=== PATIENT | female | born 1960 | race Caucasian/White ===

== ENCOUNTER → 2017-09-28 12:06 | Outpatient (CLI) | payer MEDICAID, SELFPAY ==
[2017-09-28 12:58] LABS: Erythrocyte Sedimentation Rate 5 mm/hr (0-30)
[2017-09-28 13:06] LABS: Hemoglobin A1c 5.9 % (4.2-6.3)
[2017-09-28 13:14] LABS: Vitamin B12 351 pg/mL (211-911)
[2017-09-28 13:18] LABS: Rheumatoid Factor < 10.0 IU/mL (<15); Thyroid Stim Hormone (TSH) 1.56 uIU/mL (0.358-3.74)
[2017-09-29 16:10] LABS: Albumin 4.1 g/dL (2.9-4.4); Albumin, Ur 20.1 % (.); Alpha-1-Globulin, Ur 5.6 % (.); Alpha-1-Globulins 0.2 g/dL (0.0-0.4); Alpha-2-Globulins 0.7 g/dL (0.4-1.0); Alpha-2-Globulins, Ur 13.1 % (.); Beta Globulin, Ur 20.1 % (.); Cytoplasmic Ab (C-ANCA) <1:20 titer (Neg:<1:20); Gamma Globulin 0.8 g/dL (0.4-1.8); Immunoglobulin A 197 mg/dL (87-352); Immunoglobulin G 687 mg/dL (700-1600); Immunoglobulin M 86 mg/dL (26-217); M-Spike, Ur % Not Observed % (Not Observed); PROEL- TOTAL PROTEIN 6.9 g/dL (6.0-8.5); SJOGREN'S Anti-SS-A test < 0.2 AI (0.0-0.9); SJOGREN'S Anti-SS-B test < 0.2 AI (0.0-0.9)
[2017-09-30 11:55] LABS: ANTINUCLEAR ANTIBODIES DIRECT Negative (Negative); Perinuclear Ab (P-ANCA) <1:20 titer (Neg:<1:20)
== END ==
PROVIDERS: Family Provider Family Medicine; PCP Family Medicine; Visit Provider Psychiatry & Neurology Neurology
DX: G62.9 Polyneuropathy, unspecified (principal); E11.9 Type 2 diabetes mellitus without complications
CPT/HCPCS: 36415; 82607; 82784; 83036; 84165; 84166; 84443; 85652; 86038; 86235; 86256; 86334; 86335; 86431

== ENCOUNTER → 2017-10-09 16:03 | Outpatient (CLI) | payer MEDICAID, SELFPAY ==
--- NOTE | 2017-10-09 16:14 | MRI_ITS ---
STUDY: MRI LUMBAR SPINE WITHOUT CONTRAST REASON FOR EXAM: Female, 56 years old. Low back pain and radicular symptoms to both legs. TECHNIQUE: Standardized fat and water weighted pulse sequences were obtained in the sagittal and axial planes. COMPARISON: None FINDINGS: T12-L1: Normal endplates. Normal disc height, signal and morphology. Normal bilateral facet joints. Normal central canal and bilateral lateral recesses. Normal bilateral intervertebral neural foramina. Normal lumbar lordosis. There is no substantial scoliosis. Normal conus medullaris that terminates at the L1 level. L1-2: There is a disc bulge and osteophyte complex. There is mild degenerative arthropathy of facet joints. No foramina are mildly narrowed without evidence for nerve impingement. There is no ascitic and central acquired canal stenosis. L2-3: There is mild annular disk bulge and osteophyte complex. There is mild degenerative arthropathy of the facet joints. Bilateral neuroforamina are narrowed without MR evidence for nerve impingement. There is no significant central canal stenosis. L3-4: There is mild annular disk bulge and osteophyte complex. There appears be a broad central disc protrusion. There is mild central acquired canal stenosis. There is mild degenerative arthropathy of the facet joints. Bilateral neuroforamina are narrowed without MR evidence for nerve impingement. L4-5: There is mild annular disk bulge and osteophyte complex. There is mild degenerative arthropathy of the facet joints. Bilateral neuroforamina are narrowed without MR evidence for nerve impingement. There is no significant central canal stenosis. L5-S1: There is a moderate annular disc bulge and osteophyte complex. There is moderately severe degenerative arthropathy of facet joints. Neural foramina are narrowed, more severely on the right, with possible impingement of the right L5 nerve root at the neural foramen. Normal visualized sacral ala. Normal visualized paraspinous soft tissue structures. MRI/Spine Lumbar (Routine) IMPRESSION: Moderately severe multilevel degenerative disc disease and degenerative arthropathy of the lumbar spine with acquired canal stenosis, neural foraminal narrowing and potential nerve impingement, as described. Electronically Signed: Mago Guadalupe MD at 15:58 EST , Service support ,
--- NOTE | 2017-10-09 16:14 | MRI_ITS ---
MR Brain W/O Contrast INDICATION: QUESADA'S INCREASING SEVERITY,FREQ hx of ovarian cancer COMPARISON: None TECHNIQUE: Multiplanar multisequence MRI examination of the brain without contrast. FINDINGS: There is no evidence of restricted diffusion to suggest acute ischemia/infarction. Ventricular system is normal in size and symmetric. Cortical sulci, sylvian fissures, and basal cisterns are well seen. Hunt-white matter differentiation is normal. Midline structures and craniocervical junction are normal. The cerebellopontine angles are normal and symmetric. There are punctate periventricular and subcortical FLAIR signal hyperintensities noted in the bilateral frontal lobes, nonspecific, most compatible with minimal chronic ischemic microvascular white matter changes. The supra and infratentorial brain parenchyma demonstrate otherwise normal signal. There is no evidence of parenchymal microhemorrhage, mass effect or midline shift, or abnormal extra-axial collection. Flow-voids of the [place] vascularity are well seen. The paranasal sinuses and mastooid air cells are clear. MRI/Brain without Contrast IMPRESSION: Minimal bilateral frontal chronic ischemic microvascular white matter changes. No acute findings. If there is is high clinical concern for metastatic disease, additional postcontrast sequences may be helpful for complete evaluation at 2138 Reported and signed by: Alix Lomeli MD Electronically Signed: Alix Lomeli MD at 20:36 EST Tel , Service support ,
--- NOTE | 2017-10-09 16:14 | MRI_ITS ---
STUDY: MRI CERVICAL SPINE WITHOUT CONTRAST REASON FOR EXAM: Female, 56 years old. Neck pain with bilateral arm numbness and tingling. TECHNIQUE: Standardized fat and water weighted pulse sequences were obtained in the sagittal and axial planes. Several images are limited by patient motion. COMPARISON: None FINDINGS: Normal foramen magnum and brainstem-cervical cord junction. Normal craniovertebral junction. Normal anterior atlantoaxial articulation. Normal odontoid process. There is straightening of the normal cervical lordosis. Normal vertebral bodies and posterior osseous elements. C2-3: There is moderate right-sided neural foraminal narrowing with potential nerve impingement. There is severe right-sided facet joint arthropathy that is the primary contributer to neural foraminal narrowing. The disc has a grossly normal appearance. The left neural foramen is patent. There is no sniffing and central acquired canal stenosis. C3-4: There is severe right-sided neural foraminal narrowing with probable nerve impingement left neural foramen is patent. There is no significant central acquired canal stenosis. C4-5: There is narrowing of the disc. There is a disc bulge and osteophyte complex. There is severe left-sided neural foraminal narrowing with potential nerve impingement. The right neural foramen is mildly narrowed. There is uncovertebral and facet joint arthropathy. C5-6: There is narrowing of the disc. There is a disc bulge and osteophyte complex. There is severe left-sided neural foraminal narrowing with potential nerve impingement. The right neural foramen also appears to be severely narrowed. There is no significant central acquired canal stenosis. There is moderate uncovertebral joint hypertrophy. C6-7: There is narrowing of the disc. There is severe bilateral neural foraminal narrowing with probable nerve impingement. There is moderate uncovertebral joint hypertrophy. There is no significant central acquired canal stenosis. C7-T1: Normal endplates. Normal disc height, signal and morphology. Normal central canal and intervertebral neural foramina. Normal cervical cord. There is no demonstrated cervical cord syrinx cavity. Normal visualized soft tissue structures. MRI/Spine Cervical (Routine) IMPRESSION: Moderately severe multilevel degenerative disc disease and degenerative arthropathy of the cervical spine with neural foraminal narrowing and potential nerve impingement, as described. Electronically Signed: Mago Guadalupe MD at 15:35 EST , Service support ,
== END ==
PROVIDERS: Family Provider Family Medicine; PCP Family Medicine; Visit Provider Psychiatry & Neurology Neurology
DX: R51 Headache (principal); M50.00 Cervical disc disorder with myelopathy, unspecified cervical region; M54.16 Radiculopathy, lumbar region
CPT/HCPCS: 70551; 72141; 72148

== ENCOUNTER → 2017-12-29 08:00 | Outpatient (CLI) | payer MEDICAID, SELFPAY ==
--- NOTE | 2017-12-29 10:23 | NEURO ---
NCS and/or EMG Patient Report Ordering Doctor: Fan Kolb DATE OF SERVICE: 12/29/17 This is a bilateral lower extremity nerve conduction study and a left lower extremity EMG performed on this 57-year-old female with a history of numbness and tingling in her left knee and thigh as well as back pain. Bilateral lower extremity sensory and motor nerve conduction studies are performed demonstrating normal sural sensory responses bilaterally. The common peroneal distal latencies amplitudes and conduction velocities are normal and the tibial distal latencies amplitudes and conduction velocities are preserved bilaterally. The tibial and common peroneal F-wave latencies are normal as well as the tibial H reflexes bilaterally. Left lower extremity needle electromyography is performed. Muscles evaluated included the extensor digitorum brevis, abductor hallucis, medial gastrocnemius, anterior tibialis, vastus lateralis and vastus medialis muscles. All muscles demonstrated normal insertional activity with absence of pathologic spontaneous activity. Motor unit potential recruitment pattern and amplitude was normal in all muscles tested. Impression: Normal electrophysiologic study of the lower extremities.
--- NOTE | 2017-12-29 10:26 | NEURO_ITS ---
NCS and/or EMG Patient Report Ordering Doctor: Fan Kolb DATE OF SERVICE: 12/29/17 This is a bilateral lower extremity nerve conduction study and a left lower extremity EMG performed on this 57-year-old female with a history of numbness and tingling in her left knee and thigh as well as back pain. Bilateral lower extremity sensory and motor nerve conduction studies are performed demonstrating normal sural sensory responses bilaterally. The common peroneal distal latencies amplitudes and conduction velocities are normal and the tibial distal latencies amplitudes and conduction velocities are preserved bilaterally. The tibial and common peroneal F-wave latencies are normal as well as the tibial H reflexes bilaterally. Left lower extremity needle electromyography is performed. Muscles evaluated included the extensor digitorum brevis, abductor hallucis, medial gastrocnemius , anterior tibialis, vastus lateralis and vastus medialis muscles. All muscles demonstrated normal insertional activity with absence of pathologic spontaneous activity. Motor unit potential recruitment pattern and amplitude was normal in all muscles tested. Impression: Normal electrophysiologic study of the lower extremities.
== END ==
PROVIDERS: Family Provider Family Medicine; PCP Family Medicine; Visit Provider Psychiatry & Neurology Neurology
DX: G62.9 Polyneuropathy, unspecified (principal); R20.0 Anesthesia of skin; R20.2 Paresthesia of skin
CPT/HCPCS: 95886; 95910

== ENCOUNTER 2018-02-19 13:25 | Emergency (ER) | payer MEDICAID, SELFPAY ==
[2018-02-19 13:25] VITALS: BP 119/74; PULSE 88; RESP 18; TEMP 36.4; O2SAT 95; BMI 34.3
--- NOTE | 2018-02-19 13:44 | US_ITS ---
STUDY: ABDOMINAL ULTRASOUND - RIGHT UPPER QUADRANT REASON FOR VISIT: Female, 57 years old. Abdominal pain. TECHNIQUE: Ultrasound evaluation of the right upper quadrant was performed with real-time and static iverson-scale imaging. TECHNICAL QUALITY: Adequate. COMPARISON: None. FINDINGS: Liver: The liver measures 18.4 cm. There is increased echogenicity consistent with fatty infiltration. The bile ducts are within normal limits. There is hepatic color flow. The direction of portal flow is hepatopetal. Area of hypodensity near the portal hilum measuring 3.3 x 2.5 x 2.7 cm. This is thought to represent focal fatty sparing. A mass cannot be completely ruled out. Gallbladder: Normal distended gallbladder. The gallbladder wall measures mm. There is a negative sonographic Sebastian's sign. There is no pericholecystic fluid. There is biliary sludge dependent within the gallbladder. Common Bile Duct (C.B.D.): The common bile duct measures 5 mm. Pancreas: Normal size of the head, body and tail of the pancreas. There is normal echogenicity of the pancreas. There is no demonstrated pancreatic mass or cyst. Right Kidney: Normal size of the right kidney. The right kidney measures 10.2 cm. Normal renal cortex. The right cortex measures 1.2 cm. There is no demonstrated renal mass or cyst. There is no right hydronephrosis. US/Gallbladder IMPRESSION: 1. Prominent, fatty infiltrated liver. There is a focal hypodensity near the nalini thought to be focal fatty sparing. 2. Gallbladder sludge without acute cholecystitis. Electronically Signed: Jared Doty DO at 15:03 EDT Tel [phone], Service support ,
[2018-02-19] MEDS: 0.9% Normal Saline 1,000 ML 125 ML IV (14:25)
[2018-02-19] MEDS: HYDROmorphone 1 MG/ML Syringe IV (14:25)
[2018-02-19] MEDS: Ondansetron 4 MG/2 ML Vial IV (14:25)
[2018-02-19 14:27] LABS: Absolute Lymphocyte Count 2.22 X10^3/ul (0.83-4.51); Absolute Neutrophil Count 6.3 X10^3/uL (2.0-7.7); Basophil# 0.02 X10^3/uL; Basophil% 0.2 % (0-1); Hematocrit 39.3 % (37-47); Hemoglobin 13.2 g/dl (12.0-15.0); Lymphocyte # 2.22 X10^3/ul (4.0); Lymphocyte % 23.2 % (19-41); Mean Corp Hgb Conc 33.6 g/gl (32-36); Mean Corpuscular Volume 98.3 fL (81-99); Mean Platelet Vol. 9.3 fl (6.2-12.0); Monocyte# 0.86 X10^3/uL; Neutrophil # 6.32 X10^3/uL (2.7-7.7); Neutrophil % 66.3 % (47-70); Platelet Count 330 K/mm3 (150-450); RBC Distribution Width CV 11.8 % (11.6-14.6); RBC Distribution Width SD 41.8 fl (35.1-43.9); White Blood Count 9.6 K/mm3 (4.4-11.0)
[2018-02-19 14:28] LABS: POSITIVE COUNT NO; POSITIVE DIFFERENTIAL NO; POSITIVE MORPHOLOGY NO
[2018-02-19 14:41] LABS: ALB/GLOB Ratio 1.1 RATIO (0.9-2.4); AST(SGOT) 22 U/L (15-37); Alanine Aminotransfer ALT/SGPT 46 U/L (13-56); Albumin, Serum 3.9 g/dL (3.2-5.0); Alkaline Phosphatase 64 U/L (45-117); Anion Gap 8 (5-15); BUN 12 mg/dL (7-18); BUN/Creat Ratio 19.4 RATIO (10-20); Chloride 107 mmol/L (98-107); Creatinine, Serum 0.62 mg/dL (0.55-1.02); EST Glomerular Filtration Rate 106 mL/min (>60); Est Glom Filt Rate - Afr Amer 128 mL/min (>60); Estimated Creatinine Clearance 82.81 ml/min; Globulin 3.4 g/dL (2.2-4.2); Glucose 90 mg/dL (74-106); Lipase 100 U/L (73-393); Potassium 3.9 mmol/L (3.5-5.1); Protein, Total 7.3 g/dL (6.4-8.2); Sodium Level 140 mmol/L (136-145)
[2018-02-19 16:08] LABS: D-Dimer Quantitative (DVT/PE) 0.67 FEU/ug/m (0.27-0.49)
--- NOTE | 2018-02-19 16:09 | ED.RN ---
TIMO FROM LAB CALLED WITH D-DIMER 0.67. DR. GROVE INFORMED OF SAME.
--- NOTE | 2018-02-19 16:19 | CT_ITS ---
STUDY: CTA CHEST REASON FOR EXAM: Female, 57 years old. Right lower chest pain. RADIATION DOSAGE (If Supplied By Facility): CTDIvol = ( 14.18 ) mGy, DLP = ( 595.32 ) mGycm TECHNIQUE: The examination was performed with the intravenous administration of 75mL ml of Isovue 370 contrast material. Post-processing of the angiographic images was performed, with multiplanar reformation and 3D reconstruction. Individualized dose optimization techniques were used for this CT. COMPARISON: None. FINDINGS: Normal enhancement of the main pulmonary artery and right and left pulmonary arteries. Normal enhancement of the bilateral peripheral pulmonary arteries. There is no demonstrated pulmonary embolism. Normal thoracic aorta and visualized great vessels. There is no demonstrated aortic dissection. Normal heart and pericardium. Normal mediastinum. Normal hilar regions. Normal visualized trachea and bronchi. The lungs are well expanded. Normal pulmonary parenchyma. Normal pleura. Normal chest wall structures. Normal osseous structures. No acute abnormality seen in the visualized upper abdomen. Densities seen in the gallbladder-see the report of the abdominal ultrasound. CT/CTA Chest W/WO Contrast IMPRESSION: Normal CTA chest examination, without a demonstrated pulmonary embolism or arterial dissection. No evidence for acute chest disease. Electronically Signed: Humberto Mcgowan MD at 17:00 EDT , Service support ,
--- NOTE | 2018-02-19 16:22 | ED.VISSUMM ---
- ER Visit Summary Date of Service: 02/19/18 Chief Complaint: [Abdominal pain] History of Present Illness: The patient is a 57 F [presents the emergency department complaint of abdominal pain that started 5 days ago initially. Patient initially had some diarrhea for a day or so but then resolved. Patient states the pain progressively worsened until she went to be evaluated at [facility] yesterday. Patient states she had blood work and a CAT scan with IV contrast that showed nothing acute and she was discharged home. Patient states that she continued to have pain and that this morning the pain was severe. Patient has had decreased appetite and she thinks pain seems to be worse after eating. Patient describes the pain is worse with breathing and with moving. She has some mild shortness of breath. Patient denies recent travel or surgery. Patient has a history of some chronic back pain issues and history of hypertension. Past surgical history includes an appendectomy.] Physical Examination: [HEENT-PERRLA, EOMI. Cranial nerves II through XII grossly intact. TMs clear. Mucous membranes moist. No adenopathy. Cardiovascular-regular rate and rhythm without murmur or ectopy Lungs-clear to auscultation, chest wall stable without crepitus or subcu emphysema Abdomen-normoactive bowel sounds, soft. Patient has tenderness over right upper quadrant with some guarding. Patient did have a positive Sebastian sign for me. There is no rebound, rigidity or peritoneal signs. Extremities-intact ?4, normal range of motion, normal pulses, atraumatic] Test Results: [CBC with differential obtained showed a white count of 9.6, hemoglobin 13, hematocrit 39, platelets 330. Chemistries were normal. LFTs were normal. Lipase was 100. Lactate was normal 1.0. Ultrasound of the gallbladder showed sludge and a hypodensity at the nalini hepatis of uncertain etiology but could not rule out mass. Given the patient had an elevated d-dimer CTA of the chest was ordered and results of which are pending.] Emergency Department Course and Treatment: [He was medicated with morphine and Zofran] Treatment Plan: [Care turned over to evening physician awaiting CTA chest and final disposition] Disposition: [Pending] Impression: [Abdominal pain] This note was generated with [employer] dictation software. It may contain incorrect words, spelling, and punctuation that were not noted in review of the chart prior to signing ED Disposition - Plan for ED Patient: Chief Complaint: Flank Pain Referrals: Hector Malloy MD [Primary Care Provider] -
--- NOTE | 2018-02-19 16:25 | ED.DCSUM_ITS ---
- ER Visit Summary Date of Service: 02/19/18 Chief Complaint: [Abdominal pain] History of Present Illness: The patient is a 57 F [presents the emergency department complaint of abdominal pain that started 5 days ago initially. Patient initially had some diarrhea for a day or so but then resolved. Patient states the pain progressively worsened until she went to be evaluated at [facility] yesterday. Patient states she had blood work and a CAT scan with IV contrast that showed nothing acute and she was discharged home. Patient states that she continued to have pain and that this morning the pain was severe. Patient has had decreased appetite and she thinks pain seems to be worse after eating. Patient describes the pain is worse with breathing and with moving. She has some mild shortness of breath. Patient denies recent travel or surgery. Patient has a history of some chronic back pain issues and history of hypertension. Past surgical history includes an appendectomy.] Physical Examination: [HEENT-PERRLA, EOMI. Cranial nerves II through XII grossly intact. TMs clear. Mucous membranes moist. No adenopathy. Cardiovascular-regular rate and rhythm without murmur or ectopy Lungs-clear to auscultation, chest wall stable without crepitus or subcu emphysema Abdomen-normoactive bowel sounds, soft. Patient has tenderness over right upper quadrant with some guarding. Patient did have a positive Sebastian sign for me. There is no rebound, rigidity or peritoneal signs. Extremities-intact ?4, normal range of motion, normal pulses, atraumatic] Test Results: [CBC with differential obtained showed a white count of 9.6, hemoglobin 13, hematocrit 39, platelets 330. Chemistries were normal. LFTs were normal. Lipase was 100. Lactate was normal 1.0. Ultrasound of the gallbladder showed sludge and a hypodensity at the nalini hepatis of uncertain etiology but could not rule out mass. Given the patient had an elevated d- dimer CTA of the chest was ordered and results of which are pending.] Emergency Department Course and Treatment: [He was medicated with morphine and Zofran] Treatment Plan: [Care turned over to evening physician awaiting CTA chest and final disposition] Disposition: [Pending] Impression: [Abdominal pain] This note was generated with [employer] dictation software. It may contain incorrect words, spelling, and punctuation that were not noted in review of the chart prior to signing ED Disposition - Plan for ED Patient: Chief Complaint: Flank Pain Referrals: Hector Malloy MD [Primary Care Provider] -
--- NOTE | 2018-02-19 18:13 | DCINST.ED_ITS ---
ED Disposition - Plan for ED Patient: Disposition: Home or Assisted Living Chief Complaint: Flank Pain Instructions: ED Flank Pain Uncertain Cause Prescriptions: Hydrocodone/Acetaminophen [[place] 7.5-325 Tablet] 1 ea PO Q4H PRN PRN #20 tab PRN Reason: Pain Referrals: Hector Malloy MD [Primary Care Provider] - As soon as possible Additional Instructions: [place] and Motrin for pain. Return to ER feeling worse. Call and follow-up with Dr. Malloy for further evaluation and possible outpatient nuclear medicine HIDA scan.
[2018-02-19 18:32] VITALS: BP 108/77; PULSE 73; RESP 18; O2SAT 95
== END 2018-02-19 18:33 | disposition home or self-care (01) ==
PROVIDERS: Emergency Medicine; Emergency Provider Emergency Medicine; Family Provider Family Medicine; PCP Family Medicine
DX: R10.11 Right upper quadrant pain (principal); R07.81 Pleurodynia; K82.8 Other specified diseases of gallbladder; R19.7 Diarrhea, unspecified; R06.00 Dyspnea, unspecified; R79.89 Other specified abnormal findings of blood chemistry; M54.9 Dorsalgia, unspecified; G89.29 Other chronic pain; I10 Essential (primary) hypertension; Z79.899 Other long term (current) drug therapy; Z87.891 Personal history of nicotine dependence
CPT/HCPCS: 71275; 76705; 80053; 83605; 83690; 85025; 85379; 96361; 96374; 96375; 99283; J7030; Q9967; A4216; J2405

== ENCOUNTER 2018-04-12 10:18 | Day surgery (SDC) | payer MEDICARE, MEDICAID, SELFPAY ==
[2018-04-12] VITALS (7 sets, daily range): BP systolic 127–153; BP diastolic 73–94; PULSE 55–74; RESP 16; TEMP 36.3–36.4; O2SAT 97–98; BMI 34.3
--- NOTE | 2018-04-12 12:20 | RAD_ITS ---
PROCEDURE: C6-C7 epidural block. DATE OF EXAMINATION: April 12, 2018 INDICATION: Female, 57 years old. Chronic neck pain. FLUOROSCOPY TIME (if supplied): (0:05) minutes/seconds. 2 views were obtained. Intraoperative fluoroscopic imaging was provided for C6-C7 epidural block. RAD/OR-Steroid Inj/Cer Thor/1st L IMPRESSION: Fluoroscopic imaging for C6-C7 epidural block. Electronically Signed: Mika Agudelo MD at 8:14 EDT Tel [phone], Service support ,
[2018-04-12] MEDS: Triamcinolone Acetonide 40 MG/ML Vial (12:28)
== END 2018-04-12 13:13 | disposition home or self-care (01) ==
LOC: SDC 10:19 → AC 10:20
PROVIDERS: Family Provider Family Medicine; PCP Family Medicine; Visit Provider Anesthesiology Pain Medicine
PROC: 3E0S3BZ Introduction of Anesthetic Agent into Epidural Space, Percutaneous Approach (ICD-10-PCS; CPT 62320; principal; 2018-04-12 11:55)
DX: M50.123 Cervical disc disorder at C6-C7 level with radiculopathy (principal); M54.2 Cervicalgia; I10 Essential (primary) hypertension; Z79.899 Other long term (current) drug therapy; G43.909 Migraine, unspecified, not intractable, without status migrainosus; G89.4 Chronic pain syndrome; F32.9 Major depressive disorder, single episode, unspecified; Z85.43 Personal history of malignant neoplasm of ovary; E78.00 Pure hypercholesterolemia, unspecified; K21.9 Gastro-esophageal reflux disease without esophagitis; Z87.891 Personal history of nicotine dependence
CPT/HCPCS: 62321; 64490; J7120; J3490

== ENCOUNTER 2018-05-04 08:13 | Emergency (ER) | payer MEDICARE, MEDICAID, SELFPAY ==
[2018-05-04 08:13] VITALS: BP 158/97; PULSE 84; RESP 20; TEMP 36.6; O2SAT 98; BMI 35.4
--- NOTE | 2018-05-04 08:26 | EKG12_ITS ---
Test Reason : CHEST OTHER Blood Pressure : / mmHG Vent. Rate : 076 BPM Atrial Rate : 076 BPM P-R Int : 154 ms QRS Dur : 084 ms QT Int : 390 ms P-R-T Axes : 060 031 034 degrees QTc Int : 438 ms Normal sinus rhythm Normal ECG Confirmed by HERIBERTO CARLSON, LESTER ([id number]), multimedia editor ZENA CONTI ([id number]) on 05/10/2018 3:31:11 PM Referred By: MAINE Confirmed By:LESTER LOUIS MD
[2018-05-04 08:34] VITALS: PULSE 69; RESP 19; O2SAT 95
[2018-05-04] MEDS: 0.9% Normal Saline 1,000 ML 125 ML IV (08:45)
[2018-05-04] MEDS: HYDROmorphone 1 MG/ML Syringe IV ×3 (08:45→12:08)
[2018-05-04] MEDS: Ondansetron 4 MG/2 ML Vial IV (08:45)
[2018-05-04 09:03] LABS: Absolute Lymphocyte Count 2.21 X10^3/ul (0.83-4.51); Absolute Neutrophil Count 2.6 X10^3/uL (2.0-7.7); Basophil# 0.03 X10^3/uL; Basophil% 0.5 % (0-1); Eosinophil# 0.16 X10^3/uL; Eosinophils% 2.9 % (0-5); Hematocrit 38.9 % (37-47); Hemoglobin 12.6 g/dl (12.0-15.0); Lymphocyte # 2.21 X10^3/ul (4.0); Lymphocyte % 40.2 % (19-41); Mean Corp Hgb Conc 32.4 g/gl (32-36); Mean Corpuscular Hgb 32.2 pg (27.0-32.0); Mean Corpuscular Volume 99.5 fL (81-99); Mean Platelet Vol. 8.7 fl (6.2-12.0); Monocyte# 0.45 X10^3/uL; Monocyte% 8.2 % (0-10); Neutrophil # 2.64 X10^3/uL (2.7-7.7); POSITIVE COUNT NO; POSITIVE DIFFERENTIAL NO; POSITIVE MORPHOLOGY NO; Platelet Count 272 K/mm3 (150-450); RBC Distribution Width CV 12.9 % (11.6-14.6); RBC Distribution Width SD 47.2 fl (35.1-43.9); Red Blood Count 3.91 M/mm3 (4.2-5.4); White Blood Count 5.5 K/mm3 (4.4-11.0)
[2018-05-04 09:05] LABS: Mucous, Urine 0 SEEN /hpf (<or=2+); Red Blood Cells-Urine 0 SEEN /hpf (0-5); White Blood Cells 0 SEEN /hpf (0-5)
[2018-05-04 09:06] LABS: Color, Urine Yellow (Yellow); Glucose, Dipstick Normal (Normal); Ketone-Dipstick Negative (Negative); Leukocyte Esterase-Dipstick Negative /ul (Negative); Nitrite-Dipstick Negative (Negative); Occult Blood-Urine Negative /ul (Negative); Protein-Dipstick Negative (Negative); Urine Bilirubin Dipstick Negative (Negative); Urine Clarity Clear (Clear); Urine Urobilinogen Normal (Normal)
[2018-05-04 09:11] LABS: D-Dimer Quantitative (DVT/PE) 0.44 FEU/ug/m (0.27-0.49)
[2018-05-04 09:12] LABS: Bacteria RARE /hpf (None Seen); Squamous Epithelial Cells - UA 0-5 SEEN /hpf (5-10)
[2018-05-04 09:16] LABS: ALB/GLOB Ratio 1.1 RATIO (0.9-2.4); AST(SGOT) 18 U/L (15-37); Alanine Aminotransfer ALT/SGPT 34 U/L (13-56); Albumin, Serum 3.6 g/dL (3.2-5.0); Alkaline Phosphatase 65 U/L (45-117); Anion Gap 9 (5-15); BUN 10 mg/dL (7-18); BUN/Creat Ratio 16.9 RATIO (10-20); Chloride 103 mmol/L (98-107); Creatinine, Serum 0.59 mg/dL (0.55-1.02); EST Glomerular Filtration Rate 112 mL/min (>60); Est Glom Filt Rate - Afr Amer 135 mL/min (>60); Estimated Creatinine Clearance 87.02 ml/min; Globulin 3.4 g/dL (2.2-4.2); Glucose 95 mg/dL (74-106); Lipase 72 U/L (73-393); Sodium Level 140 mmol/L (136-145)
--- NOTE | 2018-05-04 09:29 | US_ITS ---
STUDY: ABDOMINAL ULTRASOUND - RIGHT UPPER QUADRANT REASON FOR VISIT: Female, 57 years old. Right upper quadrant pain x3 days TECHNIQUE: Ultrasound evaluation of the right upper quadrant was performed with real-time and static iverson-scale imaging. TECHNICAL QUALITY: Limited. Examination limited by bowel gas. COMPARISON: None. FINDINGS: Liver: The liver measures 18.4 cm. There is increased echogenicity consistent with fatty infiltration. The bile ducts are within normal limits. There is hepatic color flow. The direction of portal flow is hepatopetal. There is no demonstrated mass lesion. Gallbladder: Normal distended gallbladder. The gallbladder wall measures 3.0 mm. There is a negative sonographic Sebastian's sign. There is no pericholecystic fluid. There are gallbladder polyps. Single polyp measures 3 x 2 x 4 mm. Common Bile Duct (C.B.D.): The common bile duct measures 4.8 mm. Pancreas: There is nonvisualization of the pancreas. Right Kidney: Normal size of the right kidney. The right kidney measures 10.3 cm. Normal renal cortex. The right cortex measures 1.5 cm. There is no demonstrated renal mass or cyst. There is no right hydronephrosis. US/Gallbladder IMPRESSION: 1. Nonvisualized pancreas 2. Hepatomegaly with the pancreatic pseudocystic 3. Gallbladder polyp measuring 3 x 2 x 4 mm. Otherwise, unremarkable, bladder. Electronically Signed: Mac Hartman DO at 11:03 EDT Tel , Service support ,
[2018-05-04 10:26] VITALS: BP 149/73; PULSE 62; RESP 13; O2SAT 98
--- NOTE | 2018-05-04 10:36 | ED.VISSUMM ---
- ER Visit Summary Date of Service: 05/04/18 Chief Complaint: [Pain in right lower chest and upper abdomen.] History of Present Illness: The patient is a 57 F [presents to the emergency department complaint of pain that started about 3 days ago. Patient describes the pain as sharp and stabbing. Patient rates the pain a 9 out of 10. Patient states pain is worse with deep breathing. She denies shortness of breath. Patient has had a mild cough. She denies any fever. Patient had nausea and decreased appetite and states the pain is worse after eating. Patient states she had similar symptoms in the past that were not as severe and resolved on their own after about 2 weeks. Patient states that she was seen at [place] emergency department 2 days ago for a syncopal episode.] Physical Examination: [HEENT-PERRLA, EOMI. Cranial nerves II through XII grossly intact. TMs clear. Mucous membranes moist. No adenopathy. Cardiovascular-regular rate and rhythm without murmur or ectopy Lungs-clear to auscultation, chest wall stable without crepitus or subcu emphysema. Patient does have some tenderness to palpation over the right anterior chest wall inferiorly. Abdomen-normoactive bowel sounds, soft. Patient has tenderness to palpation of the right upper quadrant with guarding. She has a positive Sebastian sign. There is no rebound, rigidity, or perineal signs. Extremities-intact ?4, normal range of motion, normal pulses, atraumatic] Test Results: [EKG obtained on arrival shows sinus rhythm with a ventricular rate of 76 bpm with no acute ST segment changes. CBC with differential was normal. Chemistries were normal. LFTs were normal. Troponin was less than 0.05 lipase was normal.] Bladder ultrasound showed gallbladder polyp however no evidence of thickened gallbladder wall or pericholecystic fluid. Common bile duct was normal. CT scan of the abdomen pelvis with IV and p.o. contrast was read as normal. Emergency Department Course and Treatment: She was medicated with Dilaudid and Zofran followed by Dilaudid and Phenergan for continued pain. At this point etiology of patient's pain is unclear. [] Treatment Plan: [I discussed with patient option as far as admission for further workup and evaluation and pain management versus outpatient follow-up. Patient states that her father 2 days ago and her stepmom's elderly and she cannot be admitted at this time therefore would prefer to go home. Patient will be given a prescription for Walker for pain. As well as Phenergan for nausea. Patient will be given referral to general surgeon on-call. Patient advised to return if worsening pain, fever, vomiting, or condition should worsen anyway.] Patient understands that I do not have a clear etiology for her pain and may require further testing such as possibly HIDA scan to evaluate further. Disposition: [Discharged home in stable condition.] Impression: [Abdominal pain-etiology uncertain Chest wall pain.] This note was generated with [employer] dictation software. It may contain incorrect words, spelling, and punctuation that were not noted in review of the chart prior to signing ED Disposition - Plan for ED Patient: Chief Complaint: Chest Other Referrals: Hector Malloy MD [Primary Care Provider] -
--- NOTE | 2018-05-04 11:26 | CT_ITS ---
STUDY: CT ABDOMEN AND PELVIS WITH CONTRAST REASON FOR EXAM: Female, 57 years old. Abdominal pain RADIATION DOSAGE (If Supplied By Facility): CTDIvol = ( 18.56 ) mGy, DLP = ( 1218.05 ) mGycm TECHNIQUE: Transaxial images were obtained from the dome of the diaphragm to the symphysis pubis without oral contrast. 100 ml of Isovue 300 contrast was administered. Sagittal and coronal images were reconstructed. Individualized dose optimization techniques were used for this CT. COMPARISON: None. FINDINGS: The visualized lung bases are unremarkable. The visualized portions of the heart are within normal limits. There is decreased attenuation of the liver consistent with steatosis. Normal gallbladder and extrahepatic biliary system. Normal spleen. Normal pancreas. Normal bilateral adrenal glands. Normal right kidney. Normal left kidney. Normal visualized stomach. Normal small intestine. There are multiple colonic diverticula consistent with diverticulosis. There is non-visualization of the appendix. There is diffuse atherosclerotic calcification of the abdominal aorta, without a demonstrated aneurysm. Normal inferior vena cava. Normal retroperitoneum. Normal urinary bladder. There is absence of the uterus consistent with a prior hysterectomy. Normal abdominal wall. There are diffuse degenerative changes of the visualized lumbar spine. CT/Abdomen/Pelvis WITH Contrast IMPRESSION: No acute findings Electronically Signed: Mac Hartman DO at 14:00 EDT Tel , Service support ,
[2018-05-04] MEDS: proMETHazine 25 MG/ML Syringe 12.5 MG IV (12:08)
[2018-05-04 12:13] VITALS: BP 150/76; PULSE 70; RESP 14; O2SAT 94
[2018-05-04 13:58] VITALS: BP 131/90; PULSE 74; RESP 16; O2SAT 97
--- NOTE | 2018-05-04 14:19 | DCINST.ED_ITS ---
ED Disposition - Plan for ED Patient: Chief Complaint: Chest Other Instructions: ED Abdominal Pain Unkn Cause, ED Strain Chest Wall Prescriptions: proMETHazine tablet [Phenergan] 25 mg PO Q6H PRN PRN #10 tab PRN Reason: Nausea Hydrocodone/Acetaminophen [Achille 5-325 Tablet] 1 - 2 ea PO 4X/DAY PRN PRN 5 Days #20 tab PRN Reason: Pain Referrals: Hector Malloy MD [Primary Care Provider] - As soon as possible Mylene Hilton MD [STAFF PHYSICIAN] - 3-5 Days
== END 2018-05-04 14:35 | disposition home or self-care (01) ==
PROVIDERS: Emergency Provider Emergency Medicine; Family Provider Family Medicine; PCP Family Medicine
DX: R10.11 Right upper quadrant pain (principal); R07.89 Other chest pain; R05 Cough; R11.0 Nausea; K82.4 Cholesterolosis of gallbladder; I10 Essential (primary) hypertension; Z79.899 Other long term (current) drug therapy
CPT/HCPCS: 74177; 76705; 80053; 81001; 83690; 84484; 85025; 85379; 93005; 96361; 96374; 96375; 96376; 99283; J7030; Q9967; A4216; J2405

== ENCOUNTER → 2018-05-05 10:59 | Outpatient (CLI) | payer MEDICARE, MEDICAID, SELFPAY ==
[2018-05-05 11:21] LABS: Absolute Lymphocyte Count 1.97 X10^3/ul (0.83-4.51); Absolute Neutrophil Count 3.6 X10^3/uL (2.0-7.7); Basophil# 0.02 X10^3/uL; Basophil% 0.3 % (0-1); Eosinophil# 0.15 X10^3/uL; Eosinophils% 2.4 % (0-5); Hematocrit 41.8 % (37-47); Hemoglobin 13.6 g/dl (12.0-15.0); Lymphocyte # 1.97 X10^3/ul (4.0); Lymphocyte % 31.4 % (19-41); Mean Corp Hgb Conc 32.5 g/gl (32-36); Mean Corpuscular Hgb 32.9 pg (27.0-32.0); Mean Corpuscular Volume 101.2 fL (81-99); Mean Platelet Vol. 8.7 fl (6.2-12.0); Monocyte# 0.54 X10^3/uL; Monocyte% 8.6 % (0-10); Neutrophil # 3.58 X10^3/uL (2.7-7.7); Neutrophil % 57.1 % (47-70); POSITIVE COUNT NO; POSITIVE DIFFERENTIAL NO; POSITIVE MORPHOLOGY NO; Platelet Count 276 K/mm3 (150-450); RBC Distribution Width CV 13.1 % (11.6-14.6); RBC Distribution Width SD 48.8 fl (35.1-43.9); Red Blood Count 4.13 M/mm3 (4.2-5.4); White Blood Count 6.3 K/mm3 (4.4-11.0)
--- NOTE | 2018-05-05 11:24 | US_ITS ---
STUDY: ABDOMINAL ULTRASOUND - RIGHT UPPER QUADRANT REASON FOR VISIT: Female, 57 years old. Severe right upper quadrant pain TECHNIQUE: Ultrasound evaluation of the right upper quadrant was performed with real-time and static iverson-scale imaging. TECHNICAL QUALITY: Limited. Examination limited by bowel gas. COMPARISON: 05/04/2018 FINDINGS: Liver: The liver measures 18.4 cm. There is increased echogenicity consistent with fatty infiltration. The bile ducts are within normal limits. There is hepatic color flow. The direction of portal flow is hepatopetal. There is no demonstrated mass lesion. Gallbladder: Normal distended gallbladder. The gallbladder wall measures 2.2 mm. There is a negative sonographic Sebastian's sign. There is no pericholecystic fluid. Small amount of gallbladder sludge. Small gallbladder polyp. Common Bile Duct (C.B.D.): The common bile duct measures 4.8 mm. Pancreas: There is nonvisualization of the pancreas. Right Kidney: Normal size of the right kidney. The right kidney measures 10.3 cm. Normal renal cortex. The right cortex measures 1.9 cm. There is no demonstrated renal mass or cyst. There is no right hydronephrosis. US/Gallbladder IMPRESSION: No change from exam yesterday. Again noted is mild gallbladder sludge with gallbladder polyp. No evidence of acute cholecystitis. Nonvisualized pancreas. Remainder is unchanged. Electronically Signed: Mac Hartman DO at 12:20 EDT Tel , Service support ,
[2018-05-05 11:49] LABS: AST(SGOT) 22 U/L (15-37); Alanine Aminotransfer ALT/SGPT 39 U/L (13-56); Alkaline Phosphatase 73 U/L (45-117); Anion Gap 8 (5-15); BUN 9 mg/dL (7-18); BUN/Creat Ratio 13.8 RATIO (10-20); Calcium,Total 9.5 mg/dL (8.5-10.1); Chloride 102 mmol/L (98-107); Creatinine, Serum 0.65 mg/dL (0.55-1.02); EST Glomerular Filtration Rate 100 mL/min (>60); Est Glom Filt Rate - Afr Amer 120 mL/min (>60); Glucose 96 mg/dL (74-106); Potassium 4.2 mmol/L (3.5-5.1); Sodium Level 139 mmol/L (136-145)
== END ==
LOC: PAVLAB 11:02 → US 11:17
PROVIDERS: Family Provider Family Medicine; PCP Family Medicine; Referring Provider Surgery; Visit Provider Surgery
DX: R10.11 Right upper quadrant pain (principal)
CPT/HCPCS: 36415; 76705; 80053; 85025

== ENCOUNTER → 2018-09-21 09:21 | Outpatient (CLI) | payer MEDICARE, MEDICAID, SELFPAY | PROVIDERS: Family Provider Family Medicine; PCP Family Medicine; Referring Provider Anesthesiology Pain Medicine; Visit Provider Anesthesiology Pain Medicine | DX: R69 Illness, unspecified (principal) ==

== ENCOUNTER → 2018-10-05 12:22 | Outpatient (CLI) | payer MEDICARE, MEDICAID, SELFPAY ==
[2018-05-05 10:48] VITALS: BMI 33.8
[2018-10-05 14:06] LABS: Amphetamine Urine VISTA NEGATIVE (<1000 ng/mL); Barbiturate Urine VISTA NEGATIVE (< 200 ng/mL); Benzodiazepine Urine VISTA POSITIVE (< 200 ng/mL); Cocaine Urine VISTA NEGATIVE (< 300 ng/mL); Ecstacy Urine VISTA NEGATIVE (< 500 ng/mL); Methadone Urine VISTA NEGATIVE (< 300 ng/mL); PCP Urine VISTA NEGATIVE (< 25 ng/mL); THC Urine VISTA POSITIVE (< 50 ng/mL); Vista UDS pH Range 6
== END ==
PROVIDERS: Family Provider Family Medicine; PCP Family Medicine; Referring Provider Anesthesiology Pain Medicine; Visit Provider Anesthesiology Pain Medicine
DX: F11.20 Opioid dependence, uncomplicated (principal)
CPT/HCPCS: 80307

== ENCOUNTER → 2019-06-24 08:46 | Outpatient (CLI) | payer MEDICARE, MEDICAID, SELFPAY ==
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
== END ==
PROVIDERS: Family Provider Family Medicine; PCP Family Medicine; Referring Provider Nurse Practitioner Family; Visit Provider Nurse Practitioner Family
DX: G56.03 Carpal tunnel syndrome, bilateral upper limbs (principal)
CPT/HCPCS: 95886; 95910

== ENCOUNTER → 2019-08-11 12:43 | Outpatient (CLI) | payer MEDICARE, MEDICAID, SELFPAY ==
--- NOTE | 2019-08-11 12:53 | SP.MBSS_ITS ---
PRIMARY / SECONDARY DIAGNOSIS: Other Abnormalities of Breathing (R06.89) REFERRING PHYSICIAN: Eleazar Kim CNP CURRENT DIET: Regular Textures/Thin Liquids DENTITION: Natural Dentition MENTAL STATUS: WFL for participation in MBS RESPIRATORY STATUS: Oxygenating on room air; moist non-productive cough evident prior to MBS PREVIOUS MODIFIED BARIUM SWALLOW STUDY: n/a REASON FOR REFERRAL: Referred for further assessment of swallow function under fluoroscopy w/ patient reporting increased coughing over the past 6 months with 3 instances of choking on food resulting in severe and prolonged coughing/wheezing. Patient additionally repots an allergy to latex, jaw pain w/ appointment in September to assess for TMJ dysfunction; former smoker less than a pack a day, quit 3 years ago. Reports having walking pneumonia 1 year ago. MEDICAL HISTORY: GERD, HTN, Depression/Anxiety STUDY FINDINGS: Patient participated in a Modified Barium Swallow (MBS) study on 08/11/2019. Dr. Agudelo was the radiologist present for this evaluation. This study was recorded in the lateral view and images were sent to PACs for storage. The following consistencies were presented to this patient for analysis of oropharyngeal swallow function: thin liquid, pudding and a regular texture Daija Doone shortbread cookie. Results of the MBS are as follows: PENETRATION / ASPIRATION SCALE (SO): 1 = does not enter airway 2 = enters airway/above vocal folds/ejected 3 = enters airway/above vocal folds/not ejected 4 = enters airway/contacts vocal folds/ejected 5 = enters airway/contacts vocal folds/not ejected 6 = enters airway/below vocal folds/ejected 7 = enters airway/below vocal folds/not ejected despite effort 8 = enters airway/below vocal folds/no effort PENETRATION / ASPIRATION SCALE (SCORE): 1. Thin liquid by teaspoon: 3; trace amount in the laryngeal vestibule was cleared w/ a cued cough 2. Thin liquid by teaspoon: 1 3. Single sip of thin liquid by cup: 1 4. Single sip of thin liquid by cup: 1 5. Sequential swallows of thin liquid by cup: 2; trace undercoating of the epiglottis 6. Puddin 7. ? of a barium coated Daija Doone shortbread cookie: 1 8. Single sip of thin liquid by straw: 1 IMPRESSION ORAL PHASE CHARACTERIZED BY: LABIAL SEAL: no labial escape TONGUE CONTROL DURING BOLUS MANIPULATION: cohesive bolus between tongue to palatal seal BOLUS PREPARATION / MASTICATION: timely and efficient chewing and mashing BOLUS TRANSPORT / LINGUAL MOTION: brisk tongue motion ORAL RESIDUE: trace residue lining oral structures PHARYNGEAL PHASE CHARACTERIZED BY: INITIATION OF PHARYNGEAL SWALLOW: bolus head at posterior laryngeal surface of epiglottis at first hyoid excursion with the 1st teaspoon of thin liquid presented which is not atypical w/ first bolus presented during MBS; otherwise timely swallow onset w/ bolus head at posterior angle of ramus at first hyoid excursion SOFT PALATE ELEVATION: no bolus between soft palate and pharyngeal wall LARYNGEAL ELEVATION: partial superior movement of thyroid cartilage/partial approximation of arytenoids cartilage to epiglottic petiole ANTERIOR HYOID EXCURSION: complete anterior movement EPIGLOTTIC MOVEMENT: complete epiglottic inversion LARYNGEAL VESTIBULE CLOSURE AT HEIGHT OF SWALLOW: complete laryngeal vestibule closure with no air/contrast in laryngeal vestibule PHARYNGEAL STRIPPING WAVE: pharyngeal stripping wave present / complete PHARYNGOESOPHAGEAL SEGMENT OPENING: complete distension and complete duration with no obstruction of flow TONGUE BASE RETRACTION: trace column of contrast between tongue base and posterior pharyngeal wall PHARYNGEAL RESIDUE: trace residue within or on pharyngeal structures ESOPHAGEAL PHASE CHARACTERIZED BY: ESOPHAGEAL BOLUS CLEARANCE IN THE UPRIGHT POSITION: could not view below PES for assessment d/t patient positioning EFFECTS OF TREATMENT STRATEGIES ATTEMPTED: * Cough and reswallow = effective to clear trace penetrated contrast from the laryngeal vestibule w/ first tsp bolus presented * Reduced rate of intake = transient penetration w/ sequential swallows was eliminated w/ single sip INTERPRETATION OF RESULTS This patient presents with oropharyngeal swallow function that is grossly within normal limits. Sufficeint oral containment. No anterior bolus leakage. Delayed pharyngeal swallow onset noted 1x (bolus head at posterior laryngeal surface of epiglottis at first hyoid excursion) with the 1st bolus of thin liquids presented by teaspoon at the onset of this study, resulting in laryngeal vestibule penetration. Trace penetration was ejected w/ a cued cough. Penetration is not an atypical finding w/ the first bolus presented during a MBSS d/t new taste/texture/experience. Swallow onset timing was prompt w/ all subsequent boluses presented. Transient laryngeal penetration 1x w/ sequential swallows of thin liquid WNL. Sufficient pharyngeal clearance w/ trace contrast lining pharyngeal structures post deglutition. Unable to view below PES for assessment of esophageal clearance d/t patient positioning. Of note, the patient presented with a moist nonproductive cough before the study with increased frequency and severity of cough during this study, although there was no correlation between cough and swallow function w/ no clinically significant laryngeal vestibule penetration and no aspiration identified under fluoroscopy. This patient presents with mastication and deglutition abilities found to be grossly within normal limits. RECOMMENDATIONS DIET TEXTURE RECOMMENDATIONS: regular textures/thin liquids w/ continued GERD precautions NEED FOR SKILLED SPEECH-LANGUAGE INTERVENTION TARGETING DYSPHAGIA: No further skilled speech-language intervention warranted REFERRALS: Would consider referral to pulmonology given significant of respiratory symptoms in the absence of aspiration. Additionally, would consider further workup via ENT, as this patient has a known history of GERD to determine if reflux of gastric contents that may be contributing to the coughing. ADDITIONAL COMMENTS/RECOMMENDATIONS: Results and recommendations were discussed with the Patient immediately following MBS completion, with the Patient verbalizing understanding and agreement with all education provided. IMAGE COUNT: [id number]
--- NOTE | 2019-08-11 13:10 | RAD_ITS ---
STUDY: SWALLOWING STUDY REASON FOR EXAM: Female, 58 years old. DYSPHAGIA, CHOKING, BREATHING ISSUES TECHNIQUE: The examination was performed with Speech Pathology in attendance. Under fluoroscopic observation, the patient ingested thin barium, thick barium, barium pudding, and barium coated cracker. FLUOROSCOPY TIME: 1:36 minutes/seconds. 1477 images were obtained. RADIOLOGIST INVOLVEMENT: Radiologist was present and providing direct supervision. COMPARISON: None. FINDINGS: The following was observed during swallowing of the various mixtures of barium: Thin Barium: There was no evidence of aspiration or laryngeal penetration. Barium Pudding: There was no evidence of aspiration or laryngeal penetration. Barium Coated Cracker: There was no evidence of aspiration or laryngeal penetration. RAD/Swallowing Function w/Video IMPRESSION: Normal tailored barium swallow study. No evidence of increased risk for aspiration. The swallow study findings were discussed with the patient by the speech pathologist at the conclusion of the examination. Please see speech pathology report for more information and recommendations. Electronically Signed: Mika Agudelo, at 14:31 EST , Service support ,
== END ==
PROVIDERS: Family Provider Family Medicine; PCP Family Medicine; Referring Provider Nurse Practitioner Family; Visit Provider Nurse Practitioner Family
DX: R06.89 Other abnormalities of breathing (principal)
CPT/HCPCS: 74230; 92611

== ENCOUNTER → 2024-05-27 | Outpatient (CLI) | payer MEDICARE, MEDICAID, SELFPAY ==
[2024-05-27 16:05] LABS: Platelet Count 166 K/mm3 (150-450)
== END | disposition home or self-care (01) ==
LOC: LAB 15:05
PROVIDERS: PCP Family Medicine; Referring Provider Family Medicine; Visit Provider Family Medicine
DX: D69.6 Thrombocytopenia, unspecified (principal)
CPT/HCPCS: 36415; 85049